=== PATIENT | male | born 1955 | race Caucasian/White ===

== ENCOUNTER → 2017-02-26 | Outpatient (CLI) | payer OTHER | END | disposition home or self-care (01) | LOC: US 01-14 16:00 | DX: E05.90 Thyrotoxicosis, unspecified without thyrotoxic crisis or storm (principal) ==

== ENCOUNTER → 2017-03-25 | Outpatient (CLI) | payer OTHER ==
[2017-03-25 10:51] LABS: ALBUMIN 3.7 gm/dl (3.1-4.5); ALKALINE PHOSPHATASE 54 U/L (45-117); BUN 11 mg/dl (7-24); CARBON DIOXIDE 28 mmol/L (21-32); CHLORIDE 108 mmol/L (98-107); EST GLOM FILT AFRICAN AMERICAN > 60 ml/min; GLUCOSE 108 mg/dL (65-99); POTASSIUM 4.7 mmol/L (3.5-5.1); SGOT/AST 9 IU/L (3-35); SGPT/ALT 16 U/L (12-78); SODIUM 140 mmol/L (136-145); TOTAL PROTEIN 7.5 gm/dL (6.4-8.2)
== END | disposition home or self-care (01) ==
LOC: LAB 09:57
PROVIDERS: Dietitian, Registered
DX: H93.19 Tinnitus, unspecified ear (principal)

== ENCOUNTER → 2017-10-27 | Outpatient (CLI) | payer OTHER | END | disposition home or self-care (01) | LOC: CARD 09:30 | DX: Z01.818 Encounter for other preprocedural examination (principal); I10 Essential (primary) hypertension; R94.31 Abnormal electrocardiogram [ECG] [EKG] ==